=== PATIENT | female | born 1935 | race African-American/Black ===

== ENCOUNTER 2020-11-05 03:19 | Emergency (ER) | payer OTHER ==
[~2020-11-05] VITALS: Ht 177.8 cm; Wt 78.0 kg
[2020-11-05] MEDS ORDERED: MORPHINE SULFATE 4 MG/ML CPJ (NOT FOR IM USE) IV STA (03:37)
[2020-11-05] MEDS ORDERED: ONDANSETRON HCL 4MG/2ML INJ IV STA (03:37)
[2020-11-05] MEDS ORDERED: SODIUM CHLORIDE 0.9% 500 ML IV ONE (03:45)
[2020-11-05 04:09] LABS: BASOPHILS % 1.2 % (0.0-2.0); HEMATOCRIT. 29.9 % (36.0-48.0); HEMOGLOBIN. 10.2 g/dL (12.0-16.0); LYMPHOCYTES % 22.2 % (20.0-50.0); MEAN CORPUSCULAR HEMOGLOBIN 32.5 pg (28.0-32.0); MEAN CORPUSCULAR VOLUME 95.5 fL (81.0-99.0); MEAN PLATELET VOLUME 6.8 fl (7.4-10.4); MONOCYTES % 7.4 % (2.0-8.0); NEUTROPHILS % 67.2 % (40.0-76.0); PLATELET 348 x1000/uL (130-400); RED BLOOD CELL COUNT 3.13 mill/uL (4.2-5.4); RED CELL DISTRIBUTION WIDTH 15.6 % (11.6-14.6)
[2020-11-05 04:25] LABS: CHLORIDE 92 mEq/L (98-107)
[2020-11-05] MEDS ORDERED: MORPHINE SULFATE 2 MG/ML CPJ (NOT FOR IM USE) IV ONE (05:15)
[2020-11-05] MEDS ORDERED: ONDANSETRON HCL 4MG/2ML INJ IV ONE (05:15)
[2020-11-05] MEDS ORDERED: BISA10SU62 RC (06:18)
[2020-11-05] MEDS ORDERED: OXYC-100 MT (06:18)
[2020-11-05] MEDS ORDERED: POLY119P2 MT (06:18)
[2020-11-05 08:03] VITALS: BP 116/53
== END 2020-11-05 09:50 | disposition home or self-care (01) ==
LOC: ER 03:19
DX: G89.18 Other acute postprocedural pain (principal); I10 Essential (primary) hypertension; E11.9 Type 2 diabetes mellitus without complications; Z98.890 Other specified postprocedural states
CPT/HCPCS: 36415; 73502; 73552; 80053; 83690; 85025; 93005; 93970; 96374; 99291; J2270; J2405; J7040

== ENCOUNTER 2020-12-10 10:08 | Emergency (ER) | payer OTHER ==
[~2020-12-10] VITALS: Ht 172.7 cm; Wt 75.0 kg
[~2020-12-10 10:08] MED LIST: BISA10SU62 RC; OXYC-100 MT; POLY119P2 MT
[2020-12-10 10:43] LABS: BASOPHILS % 1.1 % (0.0-2.0); EOSINOPHILS % 3.2 % (0.0-5.0); HEMATOCRIT. 34.4 % (36.0-48.0); HEMOGLOBIN. 11.8 g/dL (12.0-16.0); LYMPHOCYTES % 45.8 % (20.0-50.0); MEAN CORPUSCULAR HEMOGLOBIN 32.3 pg (28.0-32.0); MEAN CORPUSCULAR VOLUME 94.3 fL (81.0-99.0); MEAN PLATELET VOLUME 6.9 fl (7.4-10.4); MONOCYTES % 9.3 % (2.0-8.0); NEUTROPHILS % 40.6 % (40.0-76.0); PLATELET 242 x1000/uL (130-400); RED BLOOD CELL COUNT 3.65 mill/uL (4.2-5.4); RED CELL DISTRIBUTION WIDTH 14.5 % (11.6-14.6)
[2020-12-10 10:45] LABS: CHLORIDE 97 mEq/L (98-107)
[2020-12-10] MEDS ORDERED: ONDANSETRON HCL 4MG TABLET PO ONE (11:00)
[2020-12-10] MEDS ORDERED: MECLIZINE 25MG TABLET PO ONE (11:00)
[2020-12-10] MEDS ORDERED: ONDA4TAB5 PO (11:31)
[2020-12-10] MEDS ORDERED: AMOX-424 PO (11:31)
[2020-12-10] MEDS ORDERED: OFLO5DRO4 LEFT EAR (11:31)
[2020-12-10 15:01] VITALS: BP 120/82
== END 2020-12-10 15:03 | disposition home or self-care (01) ==
LOC: ER 10:08
DX: H60.91 Unspecified otitis externa, right ear (principal); H66.91 Otitis media, unspecified, right ear; E11.9 Type 2 diabetes mellitus without complications; I10 Essential (primary) hypertension
CPT/HCPCS: 36415; 71045; 80053; 83880; 84484; 85025; 93005; 99285; J8597; Q0162

== ENCOUNTER 2021-10-19 01:44 | Emergency (ER) | payer OTHER ==
[~2021-10-19] VITALS: Ht 167.6 cm; Wt 64.0 kg
[~2021-10-19 01:44] MED LIST changes: +AMOX-424 PO; +OFLO5DRO4 LEFT EAR; +ONDA4TAB5 PO
[2021-10-19 05:09] LABS: CHLORIDE 95 mEq/L (98-107)
[2021-10-19 05:13] LABS: BASOPHILS % 0.8 % (0.0-2.0); EOSINOPHILS % 3.6 % (0.0-5.0); HEMATOCRIT. 37.3 % (36.0-48.0); HEMOGLOBIN. 12.4 g/dL (12.0-16.0); LYMPHOCYTES % 45.8 % (20.0-50.0); MEAN CORPUSCULAR HEMOGLOBIN 31.4 pg (28.0-32.0); MEAN CORPUSCULAR VOLUME 94.3 fL (81.0-99.0); MEAN PLATELET VOLUME 7.3 fl (7.4-10.4); MONOCYTES % 11.9 % (2.0-8.0); NEUTROPHILS % 37.9 % (40.0-76.0); PLATELET 208 x1000/uL (130-400); RED BLOOD CELL COUNT 3.95 mill/uL (4.2-5.4); RED CELL DISTRIBUTION WIDTH 13.6 % (11.6-14.6)
[2021-10-19] MEDS ORDERED: SODIUM CHLORIDE 0.9% 500 ML IV ONE (13:15)
[2021-10-19] MEDS ORDERED: METOPROLOL TARTRATE 25MG TABLET PO ONE (14:15)
[2021-10-19] MEDS ORDERED: AMLODIPINE 5MG TABLET PO ONE (15:00)
[2021-10-19 15:10] VITALS: BP 201/97
== END 2021-10-19 16:26 | disposition short-term general hospital (02) ==
LOC: ER 01:44
DX: R42 Dizziness and giddiness (principal); E11.9 Type 2 diabetes mellitus without complications; I10 Essential (primary) hypertension; Z98.890 Other specified postprocedural states
CPT/HCPCS: 36415; 71045; 80053; 84484; 85025; 93005; 96360; 99285

== ENCOUNTER 2021-11-18 14:58 | Emergency (ER) | payer OTHER ==
[~2021-11-18] VITALS: Ht 165.1 cm; Wt 87.0 kg
[2021-11-18] MEDS ORDERED: IOHEXOL-350 100 ML BOTTLE ONE (15:17)
[2021-11-18 16:39] LABS: BASOPHILS % 0.9 % (0.0-2.0); EOSINOPHILS % 3.3 % (0.0-5.0); HEMATOCRIT. 38.9 % (36.0-48.0); LYMPHOCYTES % 50.8 % (20.0-50.0); MEAN CORPUSCULAR VOLUME 95.4 fL (81.0-99.0); MEAN PLATELET VOLUME 6.9 fl (7.4-10.4); MONOCYTES % 13.6 % (2.0-8.0); NEUTROPHILS % 31.4 % (40.0-76.0); PLATELET 212 x1000/uL (130-400); RED BLOOD CELL COUNT 4.08 mill/uL (4.2-5.4); RED CELL DISTRIBUTION WIDTH 13.5 % (11.6-14.6)
[2021-11-18] MEDS ORDERED: ACETAMINOPHEN 325MG TABLET PO ONE (16:45)
[2021-11-18] MEDS ORDERED: HYDRALAZINE 20MG/ML VIAL IV ONE (16:45)
[2021-11-18 17:13] LABS: CHLORIDE 89 mEq/L (98-107)
[2021-11-18 17:24] LABS: ETHANOL BLOOD < 10 mg/dL
[2021-11-18] MEDS ORDERED: LABETALOL HCL VIAL 20 MG/4 ML VIAL IV ONE (17:30)
[2021-11-18] MEDS ORDERED: LABETALOL 5MG/ML SYR 20 MG/4 ML SYRINGE IV NR (17:45)
[2021-11-18] MEDS ORDERED: SODIUM CHLORIDE 0.9% 1,000 ML IV ONE (18:30)
[2021-11-18] MEDS ORDERED: KETOROLAC 15MG/ML VIAL IV ONE (19:15)
[2021-11-18 21:20] VITALS: BP 160/74
== END 2021-11-18 22:00 | disposition short-term general hospital (02) ==
LOC: ER 14:58 → CANBEDREQ 11-19 19:58
DX: I63.9 Cerebral infarction, unspecified (principal); E87.1 Hypo-osmolality and hyponatremia; M84.451D Pathological fracture, right femur, subsequent encounter for fracture with routine healing; I10 Essential (primary) hypertension; E11.9 Type 2 diabetes mellitus without complications; Z20.822 Contact with and (suspected) exposure to COVID-19; Z87.311 Personal history of (healed) other pathological fracture
CPT/HCPCS: 36415; 70450; 70496; 70498; 71045; 80053; 80320; 82962; 84484; 85025; 87426; 93005; 96361; 96374; 96375; 96376; 99291; C9803; J0360; J1885; J3490; J7030; Q9967; G0480